=== PATIENT | male | born 1985 | race Two or more races ===

== ENCOUNTER 2016-12-03 18:19 | Emergency (ER) | payer OTHER ==
--- NOTE | 2016-12-03 18:34 | ED Physician Documentation ---
History of Present Illness - Stated complaint Stated Complaint: FEVER, CHEST PX, JOINT PX - Chief complaint Chief Complaint: General - History obtained from History obtained from: Patient - History of Present Illness Timing: How many days ago (3) Pain level max: 10 Pain level now: 1 - Additonal information Additional information: states fevers and body aches for 3 days. Better with tylenol and ibuprofen. Also complains of intermittent headaches, chest heaviness, neck pain. No cough, no rhinorrhea, no sore throat. No vomiting, no diarrhea. no abd pain. States feeling weak and dehyrdated Review of Systems Constitutional: reports: Fever, Myalgias Eyes: denies: Loss of vision, Decreased vision, Photophobia, Irritation Ears: denies: Ear pain Nose: denies: Rhinorrhea / runny nose, Congestion Throat: denies: Sore throat Cardiac: denies: Chest pain / pressure Respiratory: denies: Dyspnea, Cough, Hemoptysis, Wheezing GI: denies: Abdominal Pain, Nausea, Vomiting, Diarrhea, Hematemesis, Bloody / black stool : denies: Dysuria, Frequency, Hesitancy Skin: denies: Rash Neurologic: denies: Focal weakness, Numbness, Seizure, Confused, Altered mental status PD PAST MEDICAL HISTORY - Past Medical History Past Medical History: No - Past Surgical History Past Surgical History: No - Present Medications Home Medications: Ambulatory Orders Medication Instructions Recorded Confirmed No Known Home Medications [No 12/03/16 12/03/16 Known Home Medications] - Allergies Allergies/Adverse Reactions: Allergies Allergy/AdvReac Type Severity Reaction Status Date / Time No Known Drug Allergies Allergy Verified 12/03/16 18:28 - Living Situation Living Arrangement: reports: At home - Social History Does the pt smoke?: No Smoking Status: Never smoker Does the pt drink ETOH?: Yes Does the pt have substance abuse?: No - Immunizations Immunizations are current?: Yes - POLST Patient has POLST: No PD ED PE NORMAL - Vitals Vital signs reviewed: Yes - General General: Alert and oriented X 3, No acute distress, Well developed/nourished - HEENT HEENT: Atraumatic, PERRL, EOMI, Moist mucous membranes, Pharynx benign, Other ( mild erythema L TM, no fluid. Normal R TM.) - Neck Neck: Supple, no meningeal sign, No adenopathy, Other (FROM without pain) - Cardiac Cardiac: RRR, Strong equal pulses - Respiratory Respiratory: No respiratory distress, Clear bilaterally - Abdomen Abdomen: Soft, Non tender, Non distended - Back Back: No CVA TTP, No spinal TTP - Derm Derm: Warm and dry, No rash - Extremities Extremities: No tenderness to palpate, No edema - Neuro Neuro: Alert and oriented X 3 - Psych Psych: Normal mood, Normal affect Results - Vitals Vitals: Vital Signs - 24 hr 12/03/16 12/03/16 12/03/16 18:26 19:51 20:10 Temperature 37.2 C 38.0 C H Heart Rate 93 94 95 Respiratory 18 16 15 Rate Blood Pressure 154/81 H 132/75 H 133/71 H O2 Saturation 100 98 98 Oxygen O2 Source Room air - EKG (time done) 1826 Rate: Rate (enter#) (91) Rhythm: NSR Allen: Normal Intervals: Normal CO QRS: Normal Ischemia: Normal ST segments Computer interpretation: Agree with computer - Labs Labs: Laboratory Tests 12/03/16 12/03/16 12/03/16 19:00 19:00 19:15 WBC 3.3 L RBC 4.93 Hgb 14.7 Hct 43.7 MCV 88.7 MCH 29.9 MCHC 33.7 RDW 12.6 Plt Count 152 MPV 9.8 Neut # 2.4 Lymph # 0.4 L [place] # 0.4 Eos # 0.0 Baso # 0.0 Absolute Nucleated RBC 0.01 Nucleated RBCs 0.4 Sodium 137 Potassium 3.8 Chloride 102 Carbon Dioxide 28 Anion Gap 7.0 BUN 12 Creatinine 1.1 Estimated GFR (MDRD) 79 L Glucose 151 H Calcium 9.0 Total Bilirubin 0.6 AST 85 H ALT 73 H Alkaline Phosphatase 94 Total Protein 7.4 Albumin 4.1 Globulin 3.3 Albumin/Globulin Ratio 1.2 Lipase 22 Influenza A (Rapid) Negative Influenza B (Rapid) Negative Influenza Types A,B Ag - Group A Strep Rapid 12/03/16 19:15 WBC RBC Hgb Hct MCV MCH MCHC RDW Plt Count MPV Neut # Lymph # [place] # Eos # Baso # Absolute Nucleated RBC Nucleated RBCs Sodium Potassium Chloride Carbon Dioxide Anion Gap BUN Creatinine Estimated GFR (MDRD) Glucose Calcium Total Bilirubin AST ALT Alkaline Phosphatase Total Protein Albumin Globulin Albumin/Globulin Ratio Lipase Influenza A (Rapid) Influenza B (Rapid) Influenza Types A,B Ag Group A Strep Rapid Negative PD MEDICAL DECISION MAKING - ED course Complexity details: reviewed results, re-evaluated patient, considered differential, d/w patient, d/w family ED course: Patient is a 31-year-old male who presents to the emergency department what appears to be a viral syndrome. No evidence of meningitis, encephalitis, pneumonia, pharyngitis. Tolerating p.o. without difficulty. Feels better after Toradol and IV fluids. Headache improved. No urinary symptoms or CVA tenderness to suggest urinary infection. Patient and family counseled regarding signs and symptoms for which I believe and urgent re-evaluation would be necessary. Patient with good understanding of and agreement to plan and is comfortable going home at this time This document was made in part using voice recognition software. While efforts are made to proofread this document, sound alike and grammatical errors may occur. Patient is very well-appearing, nontoxic. Ambulating with a steady gait Departure - Departure Disposition: 01 Home, Self Care Clinical Impression: Viral syndrome Fever Qualifiers: Fever type: unspecified Qualified Code(s): R50.9 - Fever, unspecified Condition: Good Instructions: ED Viral Syndrome Follow-Up: your,doctor in 3 days [Other] Comments: Drink plenty of fluids and rest. Return if you worsen. This should improve over the next few days. Discharge Date/Time: 12/03/16 20:21
[2016-12-03] MEDS ORDERED: SODIUM CHLORIDE 0.9% 1,000 ML IV ONE (18:53)
[2016-12-03] MEDS ORDERED: KETOROLAC 60 MG/2 ML VIAL IVP STA (18:53)
[2016-12-03] MEDS ORDERED: KETOROLAC 30 MG/ML VIAL ONE (19:07)
[2016-12-03 19:22] LABS: BASOPHILS % (AUTO) 0.7 %; EOSINOPHILS % (AUTO) 0.1 %; HCT - HEMATOCRIT 43.7 % (42.0-52.0); HGB - HEMOGLOBIN 14.7 g/dL (14.0-18.0); LYMPHOCYTES # (AUTO) 0.4 10^3/uL (1.5-3.5); LYMPHOCYTES % (AUTO) 13.4 %; MEAN CORPUSCULAR HEMOGLOBIN 29.9 pg (27.0-31.0); MEAN CORPUSCULAR HGB CONC 33.7 g/dL (32.0-36.0); MEAN CORPUSCULAR VOLUME 88.7 fL (80.0-94.0); MEAN PLATELET VOLUME 9.8 fL (7.4-11.4); MONOCYTES # (AUTO) 0.4 10^3/uL (0.0-1.0); MONOCYTES % (AUTO) 12.5 %; NEUTROPHILS # (AUTO) 2.4 10^3/uL (1.5-6.6); NEUTROPHILS % (AUTO) 73.3 %; NUCLEATED RED BLOOD CELLS AUTO 0.4 /100WBC; RED BLOOD COUNT 4.93 10^6/uL (4.70-6.10); RED CELL DISTRIBUTION WIDTH 12.6 % (12.0-15.0); UNCORRECTED WHITE BLOOD COUNT 3.3 x10^3/uL; WHITE BLOOD COUNT 3.3 x10^3/uL (4.8-10.8)
[2016-12-03 19:32] LABS: ALBUMIN/GLOBULIN RATIO 1.2 (1.0-2.2); BILIRUBIN,TOTAL 0.6 mg/dL (0.2-1.0); CREATININE 1.1 mg/dL (0.6-1.2); POTASSIUM 3.8 mmol/L (3.5-5.0); TOTAL PROTEIN 7.4 g/dL (6.7-8.2)
[2016-12-03 19:44] LABS: RAPID STREP SCREEN REAGENT QC YELLOW (YELLOW)
[2016-12-03] MEDS ORDERED: ACETAMINOPHEN 325 MG TABLET PO STA (19:46)
[2016-12-03] MEDS ORDERED: ACETAMINOPHEN 325 MG TABLET PO ONE (19:52)
[2016-12-03 20:12] VITALS: BP 133/71
== END 2016-12-03 20:21 | disposition home or self-care (01) ==
LOC: ED 18:19
DX: B34.9 Viral infection, unspecified (principal); R50.9 Fever, unspecified
CPT/HCPCS: 36415; 80053; 83690; 85025; 87070; 87275; 87276; 87430; 93005; 93010; 96374; 99283; 99284; A9270

== ENCOUNTER 2022-09-14 23:09 | Emergency (ER) | payer OTHER ==
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
[2022-09-15 00:56] LABS: BILIRUBIN,URINE NEGATIVE (NEGATIVE); GLUCOSE, URINE (UA) NEGATIVE (NEGATIVE); KETONES,URINE (UA) NEGATIVE (NEGATIVE); LEUKOCYTE ESTERASE, URINE NEGATIVE (NEGATIVE); NITRITE,URINE NEGATIVE (NEGATIVE); OCCULT BLOOD,URINE NEGATIVE (NEGATIVE); PH,URINE 5.5 PH (5.0-7.5); PROTEIN,URINE NEGATIVE (NEGATIVE); UROBILINOGEN,URINE 0.2 (NORMAL) E.U./dL (NORMAL)
[2022-09-15 00:57] LABS: CLARITY,URINE CLEAR (CLEAR)
[2022-09-15 01:36] VITALS: BP 129/86
== END 2022-09-15 02:37 | disposition home or self-care (01) ==
LOC: ED 23:09
DX: T75.4XXA Electrocution, initial encounter (principal); W86.8XXA Exposure to other electric current, initial encounter; Y92.9 Unspecified place or not applicable
CPT/HCPCS: 36415; 81001; 81003; 82550; 87086; 93005; 99283; 99284